=== PATIENT | male | born 1995 | race Caucasian/White ===

== ENCOUNTER 2019-08-08 11:04 | Inpatient (IN) | payer MEDICAID, SELFPAY ==
[~2019-08-08] VITALS: Ht 180.3 cm; Wt 81.6 kg
[2019-08-08 11:11] VITALS: BP 129/83
--- NOTE | 2019-08-08 11:30 | NUR ---
pt biba to bed 9.
--- NOTE | 2019-08-08 11:43 | NUR ---
24 y/m BIBA FOR SOB AND COUGH FOR ABOUT 1 WEEK. PT brought in ON 10L NON REBREATHER WITH O2 LEVEL OF 95. upon assessment pt tolerating 3 l nc and satting at 96% PT STATES N/V/D AND HEADACHE 11/22. pt WAS TESTED YESTERDAY at a school FOR COVID, and told results would be in in one week, TEST PENDING. pt rr even and labored. pt tachypnic at 47bpm. abd soft, reports luq abd pain. bs active.
--- NOTE | 2019-08-08 11:46 | NUR ---
dr. pappas at bedside.
--- NOTE | 2019-08-08 11:47 | NUR ---
pt unable to provide urine at this time. urinal at bedside.
--- NOTE | 2019-08-08 12:03 | NUR ---
rt at bedside for abg.
--- NOTE | 2019-08-08 12:15 | NUR ---
xr at bedside.
--- NOTE | 2019-08-08 12:19 | NUR ---
lab called to draw pt.
[2019-08-08] MEDS ORDERED: ONDANSETRON 4 MG/2 ML VIAL IM/IVP PRN (12:50)
[2019-08-08] MEDS ORDERED: ACETAMINOPHEN 325 MG TAB PO PRN (12:50)
[2019-08-08] MEDS ORDERED: HYDROcodone/APAP 7.5/325 MG 1 TAB PO PRN (12:50)
[2019-08-08] MEDS ORDERED: DOCUSATE SODIUM 100 MG GELCAP PO PRN (12:50)
[2019-08-08 12:55] LABS: HEMOGLOBIN 13.4 g/dL (12.0-18.0); PLATELET COUNT (AUTO) 195 K/uL (140-450)
[2019-08-08 13:00] LABS: BASOPHILS # (AUTO) 0.1 K/uL (0.00-0.22); BASOPHILS % (AUTO) 0.8 % (0.0-2.0); HEMATOCRIT 40.4 % (36-52); LYMPHOCYTES # (AUTO) 0.5 K/uL (2.0-11.5); LYMPHOCYTES % (AUTO) 5.7 % (20.5-51.1); MEAN CORPUSCULAR HEMOGLOBIN 26 pg (27-31); MEAN CORPUSCULAR HGB CONC 33 g/dL (33-37); MEAN CORPUSCULAR VOLUME 79.6 fL (80-94); MONOCYTES # (AUTO) 0.3 K/uL (0.8-1.0); MONOCYTES % (AUTO) 3.5 % (1.7-9.3); NEUTROPHILS # (AUTO) 7.4 K/uL (1.8-7.7); RED BLOOD CELL COUNT(AUTO) 5.08 MIL/uL (4.20-6.10); RED CELL DISTRIBUTION WIDTH 13.9 % (11.6-13.7); WHITE BLOOD COUNT (AUTO) 8.2 K/uL (4.8-10.8)
[2019-08-08 13:12] LABS: ALBUMIN 3.5 g/dL (3.4-5.0); ANION GAP 15.9 (8-16); CARBON DIOXIDE 22.1 mmol/L (21-32); TOTAL BILIRUBIN 0.5 mg/dL (0.0-1.0)
[2019-08-08] MEDS ORDERED: ACETAMINOPHEN EXTRA STRENGTH 500 MG TAB PO ONE (13:20)
[2019-08-08 13:26] LABS: C-REACTIVE PROTEIN QUANT 16.2 mg/dL (0.0-0.9); LACTATE DEHYDROGENASE 272 U/L (85-227)
--- NOTE | 2019-08-08 13:29 | NUR ---
pt unable to provide urine at this time.
--- NOTE | 2019-08-08 13:32 | NUR ---
covid and flu swab collected and lab called for pickup
[2019-08-08 13:49] LABS: PROTHROMBIN TIME 10.1 secs (10.8-13.4)
[2019-08-08] MEDS ORDERED: ALBUTEROL HFA MDI 90 MCG/ACTUATION 8 GM INH PRN (14:00)
--- NOTE | 2019-08-08 14:03 | NUR ---
pt given a meal tray, declines food at this time, reports no appetite.
[2019-08-08 14:17] LABS: CHOL/HDL RATIO 3.3 (1-4.5); FREE T4 (FREE THYROXINE) 1.28 ng/dL (0.76-1.46); MAGNESIUM 2.1 mg/dL (1.8-2.4); PHOSPHORUS 2.9 mg/dL (2.5-4.9); THYROID STIMULATING HORMONE 1.25 uIU/mL (0.34-3.74)
[2019-08-08] MEDS: NACL 0.9% 1,000 ML IV SCH ×2 (15:01→23:34)
[2019-08-08] MEDS ORDERED: cefTRIAXone 1,000 MG VIAL ONE (15:03)
--- NOTE | 2019-08-08 15:15 | NUR ---
ROCEPHIN ATB STARTED. PT AWAKE AND ALERT. RR EVEN AND LABORED. PT TACHYPNIC RR 44. ALL NEEDS MET AT THIS TIME WILL CONTINUE TO MONITOR.
--- NOTE | 2019-08-08 15:21 | NUR ---
MRSA SWAB COLLECTED AND TAKEN TO LAB.
--- NOTE | 2019-08-08 16:15 | NUR ---
PT AMBULATED TO BATHROOM, STEADY GAIT.
--- NOTE | 2019-08-08 16:37 | NUR ---
pt still unable to provide urine at this time.
--- NOTE | 2019-08-08 17:45 | NUR ---
RECEIVED REPORT FROM EMERGENCY ROOM NURSE FOR CONTINUITY OF CARE. PATIENT IN STABLE CONDITION. RESPIRATIONS EVEN AND LABORED, O2 3L VIA NC. DR TO SEE PATIENT (DR. OSBORNE ASSESSING PATIENT). IV INTACT AND PATENT. SAFETY MEASURES IN PLACE. BED IN LOW POSITION. CALL LIGHT WITHIN REACH. WILL CONTINUE TO MONITOR.
--- NOTE | 2019-08-08 17:45 | NUR ---
Patient will be admitted to care of . Admited to TELE. Will go to room 117. Belongings list completed. Report to rosette estes.
--- NOTE | 2019-08-08 19:29 | NUR ---
GAVE REPORT TO CARDIAC CATH RN NURSE FOR CONTINUITY OF CARE. PATIENT IN STABLE CONDITION.
--- NOTE | 2019-08-08 19:30 | NUR ---
RECEIVED BEDSIDE REPORT FROM DAY SHIFT NURSE. PATIENT IS AWAKE, ALERT, AND COOPERATIVE. RESPIRATION EVEN UNLABORED ON 3L NC O2. NO DISTRESS NOTED. SKIN IS WARM AND DRY. IV PATENT AND INTACT. PLAN OF CARE WAS DISCUSSED. ALL SAFETY MEASURES IN PLACE. BED IS AT LOW POSITION. CALL LIGHT WITHIN REACH AND VERBALIZES ITS USE. WILL CONTINUE TO MONITOR.
--- NOTE | 2019-08-08 19:55 | NUR ---
PATIENT IS AWAKE, ALERT, AND COOPERATIVE. RESPIRATION EVEN UNLABORED ON 3L NC O2. SATING 95%. NO DISTRESS NOTED. SKIN IS WARM AND DRY. IV PATENT AND INTACT. HEART RATE REGULAR. S1&S2 NOTED. LUNGS SOUNDS DIMINISHED UPON AUSCULTATION. BOWEL SOUNDS PRESENT IN ALL 4 QUADRANTS. ABDOMEN SOFT AND NON-TENDER. LAST BM TODAY 08/08/19. MRSA SCREEN DONE. VITALS WERE TAKEN. PLAN OF CARE WAS DISCUSSED. ALL SAFETY MEASURES IN PLACE. ORIENT PATIENT TO ROOM, STAFF, AND CALL LIGHT. BED IS AT LOW POSITION. CALL LIGHT WITHIN REACH. WILL CONTINUE TO MONITOR.
[2019-08-08 20:00] VITALS: BP 122/74
--- NOTE | 2019-08-08 20:50 | NUR ---
ALL SCHEDULED MEDS WERE GIVEN PER ORDER. NO ASE NOTED. WILL CONTINUE TO MONITOR
[2019-08-08] MEDS ORDERED: POTASSIUM CHLORIDE 10 MEQ TABER PO SCH (21:00)
--- NOTE | 2019-08-08 22:23 | NUR ---
PATIENT IS HUNGRY. PROVIDED SANDWICH AND JUICE. WILL CONTINUE TO MONITOR.
[2019-08-08] MEDS: guaiFENesin 20 MG/ML UDC PO PRN (22:59)
--- NOTE | 2019-08-08 22:59 | NUR ---
PATIENT COMPLAINED OF DRY COUGH AND ASKING FOR COUGH MEDICINE. PRN ROBITUSSIN GIVEN PER ORDER. WILL CONTINUE TO MONITOR.
[2019-08-08] MEDS ORDERED: MELATONIN 3 MG TAB PO SCH (23:05)
--- NOTE | 2019-08-08 23:37 | NUR ---
CHECKED PATIENT REGARDING HIS COUGH. PER PATIENT SAID IT HELPS A LOT AND HE FEELS A LITTLE BETTER NOW. PATIENT ASKED FOR SLEEPING AID. PRN MELATONIN GIVEN PER ORDER. WILL CONTINUE TO MONITOR.
[2019-08-09] VITALS: BP 97/78
--- NOTE | 2019-08-09 02:19 | NUR ---
CHECKED PATIENT. PATIENT SLEEPING RESPIRATION EVEN UNLABORED ON 3L NC O2. SATING 95%. NO DISTRESS NOTED. WILL CONTINUE TO MONITOR.
--- NOTE | 2019-08-09 03:55 | NUR ---
VITALS WERE TAKEN. PATIENT IN STABLE CONDITION. NO DISTRESS NOTED. WILL CONTINUE TO MONITOR.
[2019-08-09 04:00] VITALS: BP 111/69
--- NOTE | 2019-08-09 07:15 | NUR ---
RECEIVED BEDSIDE REPORT FROM PEST CONTROL WORKER RN, LIZZETTE, FOR CONTINUITY OF CARE. PATIENT IS AWAKE, ALERT, AND COOPERATIVE. RESPIRATION EVEN UNLABORED ON 3L NC O2. NO DISTRESS NOTED. SKIN IS WARM AND DRY. IV ON LAC 20G WITH NS RUNNING AT 100ML/HR, PATENT AND INTACT. PLAN OF CARE WAS DISCUSSED. ALL SAFETY MEASURES IN PLACE. BED IS AT LOW POSITION. CALL LIGHT WITHIN REACH AND VERBALIZES ITS USE. WILL CONTINUE TO MONITOR.
--- NOTE | 2019-08-09 07:15 | NUR ---
ENDORSED PATIENT TO DAY SHIFT NURSE. PATIENT IN STABLE CONDITION.
[2019-08-09 08:00] VITALS: BP 123/76
[2019-08-09 08:18] LABS: T4 (THYROXINE) 7.9 ug/dL (4.5-12.0)
[2019-08-09] MEDS: DEXAMETHASONE 4 MG TAB PO SCH (08:30)
[2019-08-09] MEDS: AZITHROMYCIN 250 MG TAB PO SCH (08:30)
[2019-08-09] MEDS: ASCORBIC ACID 500 MG TAB PO SCH (08:30)
[2019-08-09] MEDS: ZINC SULF 220 MG CAP PO SCH (08:30)
--- NOTE | 2019-08-09 08:30 | NUR ---
MORNING MEDICATIONS GIVEN. NO SIGNS OF DISTRESS NOTED. PT. DENIES PAIN, BUT CONTINUES TO HAVE NAUSEA. WILL CONTINUE TO MONITOR.
--- NOTE | 2019-08-09 08:40 | NUR ---
EPISODE OF VOMITING AND NAUSEA WITH PERSISTENT COUGH. WILL MEDICATE WITH GUANIFESIN AND ZOFRAN. WILL CONTINUE TO MONITOR.
[2019-08-09] MEDS: guaiFENesin 20 MG/ML UDC PO PRN ×2 (08:51→20:44)
[2019-08-09] MEDS ORDERED: COMMUNICATION ORDER MC SCH (09:00)
--- NOTE | 2019-08-09 09:26 | NUR ---
PATIENT HAS BEEN SCREENED AND CATEGORIZED HIGH NUTRITION RISK. PATIENT WILL BE SEEN WITHIN 1-2 DAYS OF ADMISSION. 08/09/19-08/10/[address]
[2019-08-09 10:27] LABS: ALBUMIN 2.9 g/dL (3.4-5.0); ANION GAP 16.6 (8-16); CARBON DIOXIDE 22.6 mmol/L (21-32); CREATININE 1.1 mg/dL (0.6-1.3); POTASSIUM 3.2 mmol/L (3.5-5.1); TOTAL BILIRUBIN 0.3 mg/dL (0.0-1.0)
[2019-08-09] MEDS: NACL 0.9% 1,000 ML IV SCH ×2 (10:27→17:15)
[2019-08-09 10:52] LABS: APPEARANCE,URINE HAZY (CLEAR); BILIRUBIN,URINE NEGATIVE (NEGATIVE); BLOOD, URINE 1+ (NEGATIVE); COLOR,URINE AMBER (YELLOW); LEUKOCYTE ESTERASE ,URINE NEGATIVE (NEGATIVE); NITRITE, URINE NEGATIVE (NEGATIVE); UGLUCOSE NEGATIVE (NEGATIVE)
[2019-08-09 10:57] LABS: WBC,URINE 0-5 /HPF (0-5)
[2019-08-09 10:58] LABS: HYALINE CASTS, URINE 0-10 /LPF (None Seen)
[2019-08-09 11:04] LABS: BARBITURATE, URINE NEGATIVE ng/ml (NEG <=200); BENZODIAZEPINE, URINE NEGATIVE ng/mL (NEG <=200); CANNABINOID, URINE NEGATIVE ng/mL (NEG <=50); COCAINE, URINE NEGATIVE ng/mL (NEG <=300); OPIATE, URINE NEGATIVE ng/mL (NEG <=2000); PHENCYCLIDINE SCREEN,URINE NEGATIVE ng/mL (NEG <=25)
[2019-08-09 12:00] VITALS: BP 129/75
--- NOTE | 2019-08-09 12:10 | NUR ---
PT. DENIES NAUSEA AND REDUCED COUGH. V/S TAKEN AND IS WNL. WILL CONTINUE TO MONITOR.
--- NOTE | 2019-08-09 13:36 | NUR ---
08/09/19 RD INITIAL ASSESSMENT COMPLETED PLEASE REFER TO NUTRITION ASSESSMENT UNDER CARE ACTIVITY FOR ESTIMATED NUTRITIONAL NEEDS. 1. CONTINUE REGULAR DIET TOLERATED 2. RECOMMEND ENSURE CLEAR TID 3. EDUCATED PATIENT ON ADEQUATE NUTRITION AND FLUID INTAKE 4. RD TO FOLLOW-UP 3-5 DAYS, MODERATE RISK MAURILIO CORTES, RD
--- NOTE | 2019-08-09 13:37 | NUR ---
DEPOSITION REPORTER NOTE: Patient's Orientation Person Situation Place Time Information Provided By PHYSICIAN Comments SW CONSULTED WITH PHYSICIAN AND NO SOCIAL ISSUES WERE APPARENT. SW WAS UNABLE TO MEET WITH PATIENT DUE TO MEDICAL CONDITION. SW WILL REMAIN AVAILABLE IF SOCIAL ISSUES ARISE. Senior Production Manager, Realtionship and Phone Number N/A Healthcare Power of Waste Water Or Water Plant Operator No Does Patient Have a POLST No Identifying Problems No Social Work Triggers Is A Social Work Consult Needed No Mandate Report Filed No Explanation Of Identifying Problems PATIENT IS A 24-YEAR-OLD MALE ADMITTED FOR FEVER, SHORTNESS OF BREATH, AND COVID R/O. PATIENT HAS NO PERTINENT PMHX. Admitted From Home Pre-Admission Level Of Functioning Status Independent/Ambulatory Prior Resources/Services Used In Last 12 Months No Prior Resources Used Prior DME No Prior DME Used Living Situation Lives With Family Home Support No Caregiver Issues Financial Issues No Known Financial Issue Factors/Needs No D/C Needs Identified Discharge Plan Comments TENTATIVE DISCHARGE PLAN IS FOR PATIENT TO RETURN HOME. DC Plan Status Initiated
--- NOTE | 2019-08-09 14:24 | NUR ---
AFTERNOON MEDICATIONS GIVEN. NO SIGNS OF DISTRESS NOTED. WILL CONTINUE TO MONITOR.
--- NOTE | 2019-08-09 15:43 | NUR ---
DC PLANNIN YRS OLD MALE PATIENT WAS ADMITTED FROM HOME WITH A DX OF FEVER SOB, AND COVID-19 . PT HAS NO MEDICAL HISTORY. CXR SHOWED MILD PATCHY AIR SPACE EDEMA VERSUS INFILTRATE DECREASED LUNG VOLUMES WITH MILD BIBASILAR ATELECTASIS . STARTED DECADRON , IVF , IV ABX ROCEPHIN AND AZITHROMYCIN , COVID TEST, BLOOD AND URINE CULTURE PENDING. PULMO AND ID CONSULT ORDERED. DC PLAN TO GO HOME WHEN STABLE. CM TO FOLLOW. Addendum: 08/12/19 at 1415 by Heather Hoff CM DC PLANNING: COVID TEST POSITIVE, SEEN BY DR ANTHONY STARTED RAMDISIVIR + PLASMA , CONTINUE IVF , AND DECADRON 6MG PO, RT TREATMENT/PROTOCOL. DC PLAN PER PT RESPONSE FOR TREATMENT. CM TO FOLLOW Addendum: 08/13/19 at 1119 by Christiana Verma [facility] 02 REQUEST TO RAUL AT [facility] [phone], FAX # [phone]. RAUL RECEIVED FAX AND WILL BE WORKING ON THE ORDER. Addendum: 08/13/19 at 1421 by Christiana Verma CM FOLLOWED UP WITH RAUL HE E-MAILED A MEDICAL NECESSITY FORM THAT NEEDED TO BE FILLED OUT BY A DOCTOR. DR ASHRAF FILLED OUT THE FORM FOR ME AND I FAXED IT BACK TO RAUL AT [facility]. WAITING ON [facility] TO RECEIVE MY FAX. Addendum: 08/13/19 at 1435 by Christiana Verma CM FOLLOWED UP WITH [facility] OXYGEN WILL BE DELIVERED TO HOSPITAL WITHIN 2 HOURS BY 4:30 PM TODAY
[2019-08-09 16:00] VITALS: BP 106/65
--- NOTE | 2019-08-09 17:50 | NUR ---
RECEIVED REPORT FROM CHARGE NURSE THAT PT. IS COVID-[address] ROBERTSON. WILL CONTINUE TO MONITOR.
[2019-08-09] MEDS ORDERED: POTASSIUM CHLORIDE 10 MEQ TABER PO SCH (18:30)
--- NOTE | 2019-08-09 18:40 | NUR ---
CONSENT SIGNED FOR BLOOD TRANSFUSION. RISK AND BENEFITS DISCUSSED AND PT. VERBALIZES UNDERSTANDING. WILL CONTINUE TO MONITOR.
--- NOTE | 2019-08-09 19:15 | NUR ---
RECEIVED REPORT FROM DAY SHIFT NURSE FOR CONTINUITY OF CARE. PATIENT IN STABLE CONDITION. RESPIRATIONS EVEN AND LABORED, O2 3L VIA NC, SATURATING 98%. IV INTACT, R AC 20 G AND PATENT. SAFETY MEASURES IN PLACE. BED IN LOW POSITION. CALL LIGHT WITHIN REACH. WILL CONTINUE TO MONITOR.
--- NOTE | 2019-08-09 19:20 | NUR ---
ENDORSED TO MEDICAL STAFF SERVICES COORDINATOR RN FOR CONTINUITY OF CARE.
[2019-08-09 20:00] VITALS: BP 112/69
--- NOTE | 2019-08-09 21:00 | NUR ---
PATIENT RESTING COMFORTABLY IN BED. NO C/O PAIN. NO S/S ACUTE DISTRESS. CALL LIGHT WITHIN REACH. ISOLATION PRECAUTIONS OBSERVED.
--- NOTE | 2019-08-09 23:10 | NUR ---
PATIENT ASLEEP. NO S/S ACUTE DISTRESS. CALL LIGHT WITHIN REACH. ISOLATION PRECAUTIONS OBSERVED.
[2019-08-10] VITALS: BP 107/57
--- NOTE | 2019-08-10 02:55 | NUR ---
MADE ROUNDS. PATIENT ASLEEP. NO S/S ACUTE DISTRESS. CALL LIGHT WITHIN REACH. ISOLATION PRECAUTIONS OBSERVED.
[2019-08-10 04:00] VITALS: BP 122/67
[2019-08-10] MEDS: NACL 0.9% 1,000 ML IV SCH ×2 (04:48→14:41)
--- NOTE | 2019-08-10 06:50 | NUR ---
MADE ROUND, PATIENT IN STABLE CONDITION. NO COMPLIANT OF PAIN. NO S/S OF DISTRESS. CALL LIGHT WITHIN REACH. SAFETY PRECAUTIONS INITIATED.
--- NOTE | 2019-08-10 07:26 | NUR ---
RECEIVED BEDSIDE SHIFT REPORT FROM CARE PROCESS MANAGER NURSE FOR CONTINUATION OF CARE.
[2019-08-10 08:00] VITALS: BP 112/70
[2019-08-10 08:19] LABS: ALBUMIN 2.8 g/dL (3.4-5.0); ANION GAP 15.9 (8-16); CARBON DIOXIDE 21.7 mmol/L (21-32); CREATININE 0.9 mg/dL (0.6-1.3); POTASSIUM 3.6 mmol/L (3.5-5.1); TOTAL BILIRUBIN 0.3 mg/dL (0.0-1.0)
--- NOTE | 2019-08-10 09:00 | NUR ---
95% SPO2 ON 3 L O2 NC. TOLERATED MED PASS, RESTING IN BED, CO SOB
[2019-08-10] MEDS: AZITHROMYCIN 250 MG TAB PO SCH (09:36)
[2019-08-10] MEDS: ZINC SULF 220 MG CAP PO SCH (09:36)
[2019-08-10] MEDS: DEXAMETHASONE 4 MG TAB PO SCH (09:36)
[2019-08-10] MEDS: ASCORBIC ACID 500 MG TAB PO SCH (09:36)
--- NOTE | 2019-08-10 11:05 | NUR ---
PATIENT IS RESTING IN BED, COMPLAINS OF SOB, SPO2 94%. REPORTS POOR APPETITE.
[2019-08-10 12:00] VITALS: BP 115/73
--- NOTE | 2019-08-10 14:00 | NUR ---
PROVIDED PATIENT WITH MOBILE OXYGEN TANK, EDUCATED ON CORRECT USE WHEN GOING TO THE RESTROOM. WILL CONTINUE TO MONITOR. SPO2 96%
[2019-08-10 16:00] VITALS: BP 116/72
--- NOTE | 2019-08-10 19:23 | NUR ---
BEDSIDE SHIFT REPORT GIVEN TO SAUSAGE MEAT TRIMMER NURSE FOR CONTINUATION OF CARE.
--- NOTE | 2019-08-10 19:24 | NUR ---
RECD. RESTING IN BED, AWAKE, A/OX4. RESPIRATION EVEN AND UNLABORED. ON 02 AT 2 LITERS VIA N/C, O2 SAT - 96%. NO APPETITE TO EAT. ENCOURAGED TO EAT DINNER BUT REFUSED, STATED HE FEELS VERY WEAK AND HE DOES NOT LIKE TO EAT. 1 TETRA PACK ENSURE GIVEN TO DRINK, COOPERATIVE. ENCOURAGED TO DRINK MORE FLUIDS. PLAN OF CARE FOR THE SHIFT DISCUSSED. VERBALIZED UNDERSTANDING. DENIES PAIN 0/10.
[2019-08-10 20:00] VITALS: BP 100/51
--- NOTE | 2019-08-10 22:00 | NUR ---
GIVEN JUICES AND WATER. ENCOURAGED TO DRINK MORE, SNACK OFFERED BUT REFUSED.
[2019-08-11] VITALS: BP 91/55
--- NOTE | 2019-08-11 | NUR ---
RESTING IN BED, VS STABLE. NO SOB NOTED.
[2019-08-11] MEDS: NACL 0.9% 1,000 ML IV SCH ×4 (00:47→20:47)
[2019-08-11] MEDS ORDERED: MELATONIN 3 MG TAB PO SCH (02:25)
--- NOTE | 2019-08-11 02:40 | NUR ---
HR IN THE MONITOR IN THE 40s. CHECKED PATIENT SLEEPING, 02 SAT - 78%. PUT BACK 02 FROM 2 L TO 3 L N/C, 02 SAT INCREASED TO 100%. WAKEN AND OFFERED ENSURE, DRINK HALF OF THE TETRA PACK.
[2019-08-11 04:00] VITALS: BP 107/66
[2019-08-11] MEDS: guaiFENesin 20 MG/ML UDC PO PRN ×2 (04:06→23:09)
--- NOTE | 2019-08-11 04:06 | NUR ---
WITH COUGHING, MEDICATED WITH ROBITUSSIN PER MD ORDER. GIVE HALF OF ENSURE TO FINISH TO DRINK.
--- NOTE | 2019-08-11 05:05 | NUR ---
NO COUGHING NOTED, SLEEPING COMFORTABLY IN BED.
[2019-08-11 06:56] LABS: BASOPHILS % (AUTO) 0.3 % (0.0-2.0); EOSINOPHILS % (AUTO) 0.1 % (0.0-4.0); HEMATOCRIT 37.6 % (36-52); HEMOGLOBIN 12.4 g/dL (12.0-18.0); LYMPHOCYTES # (AUTO) 1.5 K/uL (2.0-11.5); LYMPHOCYTES % (AUTO) 13.8 % (20.5-51.1); MEAN CORPUSCULAR HEMOGLOBIN 26 pg (27-31); MEAN CORPUSCULAR HGB CONC 33 g/dL (33-37); MEAN CORPUSCULAR VOLUME 80.1 fL (80-94); MONOCYTES # (AUTO) 0.8 K/uL (0.8-1.0); MONOCYTES % (AUTO) 7.5 % (1.7-9.3); NEUTROPHILS # (AUTO) 8.6 K/uL (1.8-7.7); NEUTROPHILS % (AUTO) 78.3 % (42.2-75.2); PLATELET COUNT (AUTO) 306 K/uL (140-450); RED CELL DISTRIBUTION WIDTH 14.3 % (11.6-13.7); WHITE BLOOD COUNT (AUTO) 10.9 K/uL (4.8-10.8)
--- NOTE | 2019-08-11 07:09 | NUR ---
CONDITION REMAIN STABLE. ENDORSED TO AM SHIFT NURSE FOR CONTINUITY OF CARE.
--- NOTE | 2019-08-11 07:10 | NUR ---
RECEIVED PATIENT FROM POWER PLANT TECHNICIAN NURSE. PT IS CURRENTLY SLEEPING IN BED. RESPIRATIONS ARE EVEN AND UNLABORED ON NASAL CANNULA 3L. WITH NO SIGNS OF DISTRESS. SKIN IS INTACT WITH IV ASYMPTOMATIC PATENT AND INFUSING PER ORDER. BED IS IN LOW SEMI-FOWLERS POSITION, SAFETY MEASURES IN PLACE AND WILL CONTINUE TO MONITOR.
[2019-08-11 07:22] LABS: ALBUMIN 2.6 g/dL (3.4-5.0); ANION GAP 16.7 (8-16); CARBON DIOXIDE 21.6 mmol/L (21-32); POTASSIUM 3.3 mmol/L (3.5-5.1); TOTAL BILIRUBIN 0.3 mg/dL (0.0-1.0)
[2019-08-11 08:00] VITALS: BP 123/66
[2019-08-11] MEDS: DEXAMETHASONE 4 MG TAB PO SCH (08:37)
[2019-08-11] MEDS: ZINC SULF 220 MG CAP PO SCH (08:38)
[2019-08-11] MEDS: ASCORBIC ACID 500 MG TAB PO SCH (08:38)
[2019-08-11] MEDS: POTASSIUM CHLORIDE 10 MEQ TABER PO PRN (09:02)
--- NOTE | 2019-08-11 09:02 | NUR ---
ADMINISTERED MEDICATIONS PER ORDER AND TOLERATED WELL. PT IS CURRENTLY LAYING IN BED WITH NO SIGNS OF DISTRESS AT THIS TIME. SAFETY MEASURES IN PLACE AND WILL CONTINUE TO MONITOR.
[2019-08-11 09:41] LABS: ANION GAP 19.2 (8-16); CARBON DIOXIDE 20.3 mmol/L (21-32); POTASSIUM 3.5 mmol/L (3.5-5.1)
--- NOTE | 2019-08-11 10:00 | NUR ---
PT IS CURRENTLY SLEEPING WITH NO SIGNS OF DISTRESS AT THIS TIME. SAFETY MEASURES IN PLACE AND WILL CONTINUE TO MONITOR.
[2019-08-11 12:00] VITALS: BP 120/71
--- NOTE | 2019-08-11 12:10 | NUR ---
CHECK PT VITAL SIGNS AND ALL IN NORMAL RANGE. PT IS CURRENTLY ON 3L NASAL CANNULA WITH NO SIGNS OF DISTRESS. SAFETY MEASURES IN PLACE AND WILL CONTINUE TO MONITOR.
--- NOTE | 2019-08-11 13:21 | NUR ---
PT IS CURRENTLY SITTING UP IN BED WITH LUNCH AT BEDSIDE. PT STATES THAT HE STILL HAS NO APPETITE TO EAT. INCENTIVE SPIROMETER IS AT BEDSIDE. SAFETY MEASURES IN PLACE AND WILL CONTINUE TO MONITOR.
--- NOTE | 2019-08-11 15:12 | NUR ---
DR. FISHMAN CAME TO SEE PATIENT AND EXPLAINED TO HIM THE IMPORTANCE OF MOVING AROUND AND WALKING. PT VERBALIZED UNDERSTANDING AND HAD NO FURTHER QUESTIONS. SAFETY MEASURES IN PLACE AND WILL CONTINUE TO MONITOR
[2019-08-11 16:00] VITALS: BP 110/61
--- NOTE | 2019-08-11 17:20 | NUR ---
PT IS CURRENTLY LAYING IN BED WITH NO SIGNS OF DISTRESS AT THIS TIME. BI APPLICATION DEVELOPER IS CHANGING PATIENT AND PATIENT IS TOLERATING WELL. SAFETY MEASURES IN PLACE AND WILL CONTINUE TO MONITOR. Addendum: 08/11/19 at 1737 by Vandana Lockett RN WRONG PT
--- NOTE | 2019-08-11 17:37 | NUR ---
PT IS CURRENTLY SITTING IN BED WITH NO SIGNS OF DISTRESS AT THIS TIME. PT STATED THAT HE JUST FINISHED WALKING AROUND THE ROOM AND FEELS A LITTLE BIT BETTER. PT ALSO STATED THAT HE ATE FRUIT CUPS WELL. SAFETY MEASURES IN PLACE AND WILL CONTINUE TO MONITOR
--- NOTE | 2019-08-11 18:42 | NUR ---
PT IS CURRENTLY SLEEPING IN BED WITH NO SIGNS OF DISTRESS AT THIS TIME. DINNER IS AT BEDSIDE, SAFETY MEASURES IN PLACE AND WILL CONTINUE TO MONITOR. WILL ENDORSE TO MULTIMEDIA PRODUCER NURSE FOR CONTINUITY OF CARE.
--- NOTE | 2019-08-11 19:05 | NUR ---
RECEIVED BEDSIDE SHIFT REPORT FROM DAYSHIFT NURSE FOR CONTINUITY OF CARE. PATIENT AWAKE AND ALERT IN BED NO SIGNS OF DISTRESS NOTED. RESPIRATIONS EVEN AND UNLABORED ON 3L O2 VIA NC. IV INTACT AND INFUSING WITHOUT DIFFICULTY, TELE MONITOR ATTACHED, SPO2 CONTINUOUSLY MONITORED AND CALL LIGHT WITHIN REACH. WILL CONTINUE TO MONITOR
[2019-08-11 20:00] VITALS: BP 123/81
--- NOTE | 2019-08-11 21:53 | NUR ---
ADMINISTERED 2100 MEDICATIONS TO PATIENT. PATIENT TOLERATED WELL. ALL MONITORS ATTACHED. WILL CONTINUE TO MONITOR
--- NOTE | 2019-08-11 23:09 | NUR ---
PER PATIENT REQUEST ADMINISTERED PRN MEDICATION FOR COUGH. PATIENT TOLERATED WELL NO SIGNS OF DISTRESS NOTED. RESPIRATIONS EVEN AND UNLABORED AND ALL MONITORS ATTACHED, WILL CONTINUE TO MONITOR
[2019-08-12] VITALS: BP 123/81
--- NOTE | 2019-08-12 02:15 | NUR ---
ROUNDING, PATIENT AWAKE IN BED WATCHING TV. NO SIGNS OF DISTRESS NOTED. WILL CONTINUE TO MONITOR
[2019-08-12 04:00] VITALS: BP 115/73
--- NOTE | 2019-08-12 04:15 | NUR ---
ROUNDING, OBTAINED 0400 VITALS. PATIENT TOLERATED WELL NO SIGNS OF DISTRESS NOTED. WILL CONTINUE TO MONITOR
[2019-08-12 06:44] LABS: ANION GAP 15.5 (8-16); CARBON DIOXIDE 20.9 mmol/L (21-32); CREATININE 0.9 mg/dL (0.6-1.3); POTASSIUM 3.4 mmol/L (3.5-5.1)
[2019-08-12] MEDS: NACL 0.9% 1,000 ML IV SCH ×2 (06:47→16:47)
[2019-08-12] MEDS ORDERED: CLINICAL MONITORING MC PRN (07:15)
[2019-08-12 07:17] LABS: BASOPHILS % (AUTO) 0.1 % (0.0-2.0); EOSINOPHILS % (AUTO) 0.1 % (0.0-4.0); HEMATOCRIT 37.3 % (36-52); HEMOGLOBIN 12.1 g/dL (12.0-18.0); LYMPHOCYTES # (AUTO) 1.7 K/uL (2.0-11.5); LYMPHOCYTES % (AUTO) 15.2 % (20.5-51.1); MEAN CORPUSCULAR HEMOGLOBIN 26 pg (27-31); MEAN CORPUSCULAR HGB CONC 32 g/dL (33-37); MEAN CORPUSCULAR VOLUME 81.2 fL (80-94); MONOCYTES % (AUTO) 8.7 % (1.7-9.3); NEUTROPHILS # (AUTO) 8.4 K/uL (1.8-7.7); NEUTROPHILS % (AUTO) 75.9 % (42.2-75.2); PLATELET COUNT (AUTO) 359 K/uL (140-450); RED BLOOD CELL COUNT(AUTO) 4.59 MIL/uL (4.20-6.10); RED CELL DISTRIBUTION WIDTH 14.5 % (11.6-13.7)
--- NOTE | 2019-08-12 07:22 | NUR ---
WILL ENDORSE PATIENT TO DAYSHIFT NURSE FOR CONTINUITY OF CARE. PATIENT IN STABLE CONDITION
--- NOTE | 2019-08-12 07:30 | NUR ---
RECEIVED PT FROM TIRE SORTER NURSERADHA, PT IS AWAKE AND LYING ON THE BED, ON ISOLATION FOR DROPLET, IV LNINE NOTED ON THE LEFT FA G. 20 WITH NS INFUSING AT 100ML/HR, INTACT, ON O2 3L NC, NO SIGN OF DISTRESS NOTED AND WILL MONITOR PT.
[2019-08-12 08:00] VITALS: BP 94/58
[2019-08-12 08:35] LABS: MAGNESIUM 1.9 mg/dL (1.8-2.4); PHOSPHORUS 3.8 mg/dL (2.5-4.9)
[2019-08-12] MEDS ORDERED: COMMUNICATION ORDER MC SCH (09:00)
[2019-08-12] MEDS ORDERED: remdesivir 200 mg in NACL 0.9% 100 ML IV SCH (09:00)
[2019-08-12] MEDS: ASCORBIC ACID 500 MG TAB PO SCH (09:15)
[2019-08-12] MEDS: ZINC SULF 220 MG CAP PO SCH (09:15)
[2019-08-12] MEDS: DEXAMETHASONE 4 MG TAB PO SCH (09:15)
[2019-08-12] MEDS: VITAMIN D 400 IU TAB PO SCH (09:16)
--- NOTE | 2019-08-12 09:18 | NUR ---
PT IS AWAKE AND WAS GIVEN THE SCHEDULED AM MEDICATIONS.
[2019-08-12] MEDS: POTASSIUM CHLORIDE 10 MEQ TABER PO PRN (09:20)
[2019-08-12 12:00] VITALS: BP 104/68
--- NOTE | 2019-08-12 12:45 | NUR ---
PT IS SEATED ON THE CHAIR/ V/S TAKEN AND IS STABLE WILL MONITOR PT.
--- NOTE | 2019-08-12 14:55 | NUR ---
TRANSFUSION OF CONVALESCENT FROZEN PLASM WAS STARTED TO PT NOW.
--- NOTE | 2019-08-12 15:25 | NUR ---
PLASMA TRANSFUSION WAS FINISHED NOW. V/S STABLE AND NO SIGN OF DISTRESS NOTED.
[2019-08-12 16:00] VITALS: BP 101/66
[2019-08-12] MEDS ORDERED: LOPERAMIDE 2 MG CAP PO PRN (17:35)
--- NOTE | 2019-08-12 19:15 | NUR ---
ENDORSED PT TO DIRECTOR OF VALUATION NURSEGIA FOR CONTINUITY OF CARE.
--- NOTE | 2019-08-12 19:16 | NUR ---
RECEIVED PATIENT FROM DAY SHIFT NURSE ESTELLA FOR CONTINUITY OF CARE. PATIENT IN STABLE CONDITION. RESPIRATIONS EVEN AND UNLABORED, O2 4L VIA NC. IV INTACT AND PATENT. BED IN LOW POSITION. CALL LIGHT WITHIN REACH. WILL CONTINUE TO MONITOR.
[2019-08-12 20:00] VITALS: BP 118/73
--- NOTE | 2019-08-12 21:12 | NUR ---
GAVE ORDERED DUE MEDICATIONS AT THIS TIME. PATIENT TOLERATED WELL. BED IN LOW POSITION. CALL LIGHT WITHIN REACH. WILL CONTINUE TO MONITOR.
[2019-08-13] VITALS: BP 123/81
--- NOTE | 2019-08-13 02:25 | NUR ---
PATIENT SLEEPING AT THIS TIME. RESPIRATIONS EVEN AND UNLABORED. BED IN LOW POSITION. CALL LIGHT WITHIN REACH. WILL CONTINUE TO MONITOR.
[2019-08-13] MEDS: NACL 0.9% 1,000 ML IV SCH ×2 (03:34→12:38)
[2019-08-13 04:00] VITALS: BP 116/79
--- NOTE | 2019-08-13 07:15 | NUR ---
GAVE REPORT TO DAY SHIFT NURSE FOR CONTINUITY OF CARE. PATIENT IN STABLE CONDITION.
--- NOTE | 2019-08-13 07:20 | NUR ---
RECEIVED PT FROM TARPER RN, GIA, FOR CONTINUITY OF CARE. PATIENT IS AWAKE AND LYING ON THE BED, ON ISOLATION FOR DROPLET. NO SIGNS OF DISTRESS NOTED AT 4LPM O2 VIA NC. IV LINE NOTED ON THE LEFT FA 20G WITH NS RUNNING AT 100ML/HR, INTACT AND FLUSHES WELL. POC DISCUSSED, SAFETY PRECAUTIONS IN PLACE. WILL CONTINUE TO MONITOR.
[2019-08-13 07:30] LABS: BASOPHILS % (AUTO) 0.3 % (0.0-2.0); EOSINOPHILS % (AUTO) 0.3 % (0.0-4.0); HEMATOCRIT 36.8 % (36-52); LYMPHOCYTES # (AUTO) 2.3 K/uL (2.0-11.5); LYMPHOCYTES % (AUTO) 21.6 % (20.5-51.1); MEAN CORPUSCULAR HEMOGLOBIN 26 pg (27-31); MEAN CORPUSCULAR HGB CONC 33 g/dL (33-37); MEAN CORPUSCULAR VOLUME 80.5 fL (80-94); MONOCYTES # (AUTO) 0.9 K/uL (0.8-1.0); MONOCYTES % (AUTO) 8.3 % (1.7-9.3); NEUTROPHILS # (AUTO) 7.4 K/uL (1.8-7.7); NEUTROPHILS % (AUTO) 69.5 % (42.2-75.2); PLATELET COUNT (AUTO) 410 K/uL (140-450); RED BLOOD CELL COUNT(AUTO) 4.57 MIL/uL (4.20-6.10); RED CELL DISTRIBUTION WIDTH 14.4 % (11.6-13.7); WHITE BLOOD COUNT (AUTO) 10.7 K/uL (4.8-10.8)
[2019-08-13 07:47] LABS: ANION GAP 9.8 (8-16); CARBON DIOXIDE 25.9 mmol/L (21-32); CREATININE 0.9 mg/dL (0.6-1.3); POTASSIUM 3.7 mmol/L (3.5-5.1)
[2019-08-13 08:00] VITALS: BP 107/71
[2019-08-13] MEDS ORDERED: LACTOBACILLUS RHAMNOSUS GG 1 EACH CAP PO SCH (09:00)
[2019-08-13] MEDS ORDERED: remdesivir 100 mg in NACL 0.9% 100 ML IV SCH ×2 (09:00→12:00)
[2019-08-13] MEDS: VITAMIN D 400 IU TAB PO SCH (09:30)
[2019-08-13] MEDS: ZINC SULF 220 MG CAP PO SCH (09:30)
[2019-08-13] MEDS: ASCORBIC ACID 500 MG TAB PO SCH (09:31)
[2019-08-13] MEDS: DEXAMETHASONE 4 MG TAB PO SCH (09:31)
[2019-08-13 09:33] LABS: ALBUMIN 2.6 g/dL (3.4-5.0); BILIRUBIN,DIRECT 0.1 mg/dL (0.0-0.3); TOTAL BILIRUBIN 0.4 mg/dL (0.0-1.0)
--- NOTE | 2019-08-13 10:00 | NUR ---
MORNING MEDICATIONS GIVEN. NO SIGNS OF DISTRESS NOTED. V/S TAKEN AND IS WNL. WILL CONTINUE TO MONITOR.
--- NOTE | 2019-08-13 10:05 | NUR ---
ATTEMPTED TO TITRATE PATIENT O2 TO ROOM AIR, SAO2 DECREASED TO 86%. PATIENT PLACED BACK ON O2 AT 2L NC WITH SAO2 AT 91%. WILL REPORT TO DR. ASHRAF. WILL CONTINUE TO MONITOR.
--- NOTE | 2019-08-13 10:40 | NUR ---
RECEIVED CALL FROM ACID POLYMERIZATION OPERATORSHARITA. REPORTED DESATURATION OF PATIENT WHEN OFF O2. WILL CONTINUE TO MONITOR.
[2019-08-13 12:00] VITALS: BP 117/75
--- NOTE | 2019-08-13 12:30 | NUR ---
AFTERNOON MEDICATIONS GIVEN, NO SIGNS OF DISTRESS NOTED. PATIENT O2 TITRATED DOWN TO ROOM AIR, PATIENT STATING FINE AT 95%. REPORTED TO SHARITA, CASE MANAGEMENT. WILL CONTINUE TO MONITOR.
[2019-08-13] MEDS ORDERED: APIX2.5 PO (15:21)
[2019-08-13] MEDS ORDERED: MULT-1305 PO (15:21)
[2019-08-13] MEDS ORDERED: DEC4 PO (15:21)
[2019-08-13 16:26] VITALS: BP 117/75
--- NOTE | 2019-08-13 17:30 | NUR ---
DISCHARGE PAPERWORKS AND TEACHINGS GIVEN. PATIENT VERBALIZES UNDERSTANDING. EDUCATIONS ABOUT COVID-19 GIVEN, HOME ISOLATION, 10 WAYS TO MANAGE SYMPTOMS, AND NUTRITION HANDOUTS GIVEN. WILL CONTINUE TO MONITOR.
--- NOTE | 2019-08-13 17:38 | NUR ---
PATIENT DISCHARGED TO HOME. IV SITE AND ARMBANDS REMOVED. DISCHARGE INSTRUCTIONS GIVEN AND PATIENT VERBALIZES UNDERSTANDING. NO SIGNS OF DISTRESS.
== END 2019-08-13 17:38 | disposition home or self-care (01) | DRG 137 ==
LOC: EEVIPCON 11:04 → MED 11:04 → MTU 12:47
PROVIDERS: ADMIT General Practice; ATTEND General Practice
PROC: 30233K1 Transfusion of Nonautologous Frozen Plasma into Peripheral Vein, Percutaneous Approach (ICD-10-PCS; principal; 2019-08-06)
DX: U07.1 COVID-19 (principal); J12.89 Other viral pneumonia; E87.1 Hypo-osmolality and hyponatremia; E87.6 Hypokalemia; R80.9 Proteinuria, unspecified; F41.9 Anxiety disorder, unspecified
CPT/HCPCS: 36415; 36600; 71045; 80048; 80053; 80076; 80305; 81001; 82150; 82550; 82728; 82803; 82948; 83036; 83605; 83615; 83690; 83735; 83880; 84100; 84436; 84439; 84443; 84479; 84484; 85025; 85379; 85384; 85610; 85651; 85730; 86140; 86886; 86900; 86901; 87040; 87081; 87086; 87804; 93005; 99291; J0696; J1644; J2405; J7030; J7060; P9017; Q0092; U0003-CS

== ENCOUNTER 2022-01-09 17:28 | Emergency (ER) | payer MEDICAID, BC ==
[~2022-01-09] VITALS: Ht 165.1 cm; Wt 81.6 kg
[~2022-01-09 17:28] MED LIST: APIX2.5 PO; DEC4 PO; MULT-1305 PO
[2022-01-09 17:57] VITALS: BP 123/79
[2022-01-09] MEDS ORDERED: LIDOCAINE MPF 1% 5 ML ONE (20:33)
--- NOTE | 2022-01-09 20:34 | NUR ---
VERBAL ORDER FOR LIDOCAINE 1% PULLED FOR PROCEDURE.
[2022-01-09] MEDS ORDERED: BACITRACIN OINT 500 UNITS/GM PKT TP ONE (21:00)
[2022-01-09] MEDS ORDERED: CYCL-711 PO (21:33)
[2022-01-09] MEDS ORDERED: AMOX1TAB8 PO (21:33)
[2022-01-09] MEDS ORDERED: ACET-10509 PO (21:33)
[2022-01-09] MEDS ORDERED: BACTO TP (21:33)
[2022-01-09] MEDS ORDERED: IBUP-1842 PO (21:33)
[2022-01-09 22:15] VITALS: BP 123/79
--- NOTE | 2022-01-09 22:15 | NUR ---
Patient discharged with v/s stable. Written and verbal after care instructions given and explained. Patient alert, oriented and verbalized understanding of instructions. Ambulatory with steady gait. All questions addressed prior to discharge. ID band removed. Patient advised to follow up with PMD. Rx of TYLENOL, AMOX-CLAV,BACTROBAN, FLEXERIL, IBUPROFEN given. Patient educated on indication of medication including possible reaction and side effects. Opportunity to ask questions provided and answered.
== END 2022-01-09 22:15 | disposition home or self-care (01) ==
LOC: MED 17:28
DX: S01.21XA Laceration without foreign body of nose, initial encounter (principal); M79.632 Pain in left forearm; M79.641 Pain in right hand; M79.642 Pain in left hand; Z79.899 Other long term (current) drug therapy; V86.59XA Driver of other special all-terrain or other off-road motor vehicle injured in nontraffic accident, initial encounter; Y93.19 Activity, other involving water and watercraft; Y92.89 Other specified places as the place of occurrence of the external cause; Y99.8 Other external cause status
CPT/HCPCS: 12011; 70450; 70486; 73080; 73090; 73130; 90471; 90715; 99284; J2001